=== PATIENT | female | born 1960 | race Caucasian/White ===

== ENCOUNTER 2017-08-09 06:29 | Day surgery (SDC) | payer BC ==
[~2017-08-09 06:29] MED LIST: Buffered Lidocaine 0.9% SYRIN* 5 ML/SYR SYRINGE INTRADERM ONE; Famotidine TAB* 20 MG PO ONE; Metoclopramide TAB* 10 MG PO ONE; Scopolamine 1.5 mg* PATCH TRANSDERM ONE; Sodium Citrate/Citric Acid* 15 ML UDC PO ONE
[2017-08-09] MEDS ORDERED: Metoclopramide TAB* 10 MG ONE (06:44)
[2017-08-09] MEDS ORDERED: Famotidine TAB* 20 MG ONE (06:44)
[2017-08-09] MEDS ORDERED: Sodium Citrate/Citric Acid* 15 ML UDC ONE (06:44)
[2017-08-09] MEDS ORDERED: Scopolamine 1.5 mg* PATCH ONE (06:44)
[2017-08-09] MEDS ORDERED: Buffered Lidocaine 0.9% SYRIN* 5 ML/SYR SYRINGE ONE (06:45)
[2017-08-09] MEDS ORDERED: Lidocaine 1% MPF wEPI 200,000* 30 ML SDV ONE (07:35)
[2017-08-09] MEDS ORDERED: fentaNYL* 50 MCG/ML 2 ML VIAL (100 MCG VIAL) ONE ×2 (07:44→10:00)
[2017-08-09] MEDS ORDERED: Dexamethasone IV* 4 MG/ML 1 ML (4 MG) ONE (07:45)
[2017-08-09] MEDS ORDERED: Ondansetron INJ* 2 MG/ML VIAL ONE (07:45)
[2017-08-09] MEDS ORDERED: Succinylcholine* 20 MG/ML 10 ML VIAL ONE (07:45)
[2017-08-09] MEDS ORDERED: Propofol* 10 MG/ML 20 ML BTL IV PUSH ONE (07:45)
[2017-08-09] MEDS ORDERED: HYDROcodone/ACETAMIN 5-325 MG* 1 TAB PO PRN (09:27)
[2017-08-09] MEDS ORDERED: Naloxone* 0.4 MG/ML 1 ML VIAL IV PRN (09:27)
[2017-08-09] MEDS ORDERED: EPHEDrine (Pressors)* 50 MG/ML VIAL ONE (09:30)
[2017-08-09] MEDS: fentaNYL* 50 MCG/ML 2 ML VIAL (100 MCG VIAL) IV PRN ×2 (10:02→10:49)
[2017-08-09] MEDS ORDERED: Acetaminoph/Cod 120/12 mg LIQ* 5 ML UDC ONE (10:08)
[2017-08-09] MEDS: DiMENhydriNATE IV* 50 MG/ML VIAL IV PUSH PRN ×2 (11:10→11:23)
[2017-08-09] MEDS ORDERED: DiMENhydriNATE IV* 50 MG/ML VIAL ONE (11:10)
[2017-08-09 13:13] VITALS: BP 112/58
--- NOTE | 2017-08-09 23:30 | OP ---
DATE OF OPERATION: 08/09/17 - [facility] DATE OF : 62 SURGEON: Ashutosh Rasheed MD S[employer]IOR [employer] SPECIALIST: Dr. Lomas. PRE-OP DIAGNOSIS: Left parathyroid adenoma. POST-OP DIAGNOSIS: Left parathyroid adenoma. OPERATIVE PROCEDURE: Left inferior parathyroidectomy under general endotracheal anesthesia. COMPLICATIONS: None. DISPOSITION: Good. SPECIMEN: Left inferior parathyroid. BLOOD LOSS: Less than 5 mL. DESCRIPTION OF PROCEDURE: The patient was taken to the operating room and placed in supine position on the operating table. General anesthesia induced and she was orotracheally intubated with the NIM endotracheal tube. The electrodes were then placed into her shoulder for ground and return if needed. Head was extended and the incision was demarcated inferior to her cricoid and injected with 1% lidocaine 1:200,000 epinephrine. She was prepped with Betadine and draped in a sterile fashion. Incision was made through the skin, platysma muscle, and flaps were raised. The strap muscles were elevated off of the left thyroid and then blunt dissection was used to systematically find the adenoma. The recurrent laryngeal nerve was found and the adenoma was found adjacent to this on the lateral aspect of the trachea inferior to the inferior portion of the thyroid gland. It was dissected out and sent down for frozen section, which confirms that it is parathyroid tissue at this point or adenoma. I did not do rapid PTH because her parathyroid hormone had been elevated at her preoperative testing. Wound was irrigated with saline. Hemostasis was ensured. The strap muscles were reapproximated with Vicryl. The skin was closed with 3 -0 deep dermal Vicryl and running subcuticular 4-0 Prolene, Mastisol and Steri- Strips. Patient tolerated this procedure well, no complications, transferred to the recovery room in stable condition. [id number]/[facility] #: [id number] [facility]USJennifer
[2017-08-12] MEDS ORDERED: Scopolamine PATCH Remove* 1 NOTE MISC PATCH OFF ONE (06:00)
== END 2017-08-09 13:00 | disposition home or self-care (01) ==
LOC: OR 06:29
PROVIDERS: ATTEND Otolaryngology
DX: D35.1 Benign neoplasm of parathyroid gland (principal); E21.0 Primary hyperparathyroidism; I10 Essential (primary) hypertension; L30.9 Dermatitis, unspecified; Z87.891 Personal history of nicotine dependence
CPT/HCPCS: 88305; 88331; A9270-GY; J0330; J1100; J1240; J2001; J2405; J2704; J3010

== ENCOUNTER → 2019-08-09 12:46 | Day surgery (SDC) | payer BC ==
[~2019-08-09 12:46] MED LIST changes: -Buffered Lidocaine 0.9% SYRIN* 5 ML/SYR SYRINGE INTRADERM ONE; +Buffered Lidocaine 1% SYRIN* 1 ML/SYRINGE INTRADERM ONE; +Bupivacaine 0.25% EPI 200,000* 30 ML SDV ONE; +Dexamethasone IV* 4 MG/ML 1 ML (4 MG) ONE; +DiMENhydriNATE IV* 50 MG/ML VIAL IV PUSH PRN; +DiMENhydriNATE IV* 50 MG/ML VIAL ONE; +EPINEPHRINE 1 MG/ML 1 ML VIAL ONE; -Famotidine TAB* 20 MG PO ONE; +Ketorolac INJ* 30 MG/ML 1 ML VIAL ONE; +Lactated Ringers 1000 ML Bag* 1,000 ML IV SCH; +Lidocaine 2% PF * 5 ML VIAL ONE; +Metoclopramide IV* 5 MG/ML 2 ML VIAL ONE; -Metoclopramide TAB* 10 MG PO ONE; +Midazolam* 1 MG/ML 2 ML VIAL (2 MG) ONE; +Naloxone* 0.4 MG/ML 1 ML VIAL IV PRN; +Ondansetron INJ* 2 MG/ML VIAL ONE; +Propofol* 10 MG/ML 20 ML BTL ONE; +ROPIVACAINE 5 MG/ML 30 ML BTL (0.5%) ONE; +Rocuronium* 10 MG/ML VIAL ONE; -Scopolamine 1.5 mg* PATCH TRANSDERM ONE; -Sodium Citrate/Citric Acid* 15 ML UDC PO ONE; +Succinylcholine* 20 MG/ML 10 ML VIAL ONE; +ceFAZolin 2 GM PREMIX in ORs 2 GM/50 ML BAG ONE; +fentaNYL* 50 MCG/ML 2 ML VIAL (100 MCG VIAL) ONE; +oxyCODONE TAB* 5 MG TAB ONE; +oxyCODONE TAB* 5 MG TAB PO PRN
[2019-08-09] MEDS: fentaNYL* 50 MCG/ML 2 ML VIAL (100 MCG VIAL) IV PRN ×2 (20:25→20:35)
[2019-08-09 21:03] VITALS: BP 129/71
--- NOTE | 2019-08-11 03:02 | OP ---
OPERATIVE REPORT: DATE OF OPERATION: 08/09/19 DATE OF : 62 SURGEON: Kb Escalante MD STATION ENGINEER MAIN LINE: ISAEL Rodriguez A physician assistant sales center manager was required for the length of the procedure for assistance with patient positi oning, instrumentation, and closure. ANESTHESIOLOGIST: Dr. Viv Loya. ANESTHESIA: General anesthesia, regional interscalene block anesthesia. PRE-OP DIAGNOSES: 1. Right shoulder supraspinatus rotator cuff tendon tear, full-thickness. 2. Right shoulder subacromial impingement and bursitis. 3. Right shoulder acromioclavicular joint osteoarthritis. 4. Possible right shoulder biceps tendinitis. POST-OP DIAGNOSES: 1. Right shoulder supraspinatus rotator cuff tendon tear, partial-thickness. 2. Right shoulder subacromial impingement and bursitis. 3. Right shoulder acromioclavicular joint osteoarthritis. OPERATIVE PROCEDURE: 1. Right shoulder arthroscopic rotator cuff tendon repair with Regeneten biologic patch. 2. Right shoulder arthroscopic subacromial decompression. 3. Right shoulder arthroscopic distal clavicle resection. ANTIBIOTICS: Ancef 2 g IV. IV FLUIDS: See anesthesia note. [id number] TIME: 50 minutes. SPECIMEN: None. IMPLANT: [employer] Regeneten biologic patch, size medium. COMPLICATIONS: None. ESTIMATED BLOOD LOSS: Minimal. INDICATIONS FOR PROCEDURE: The patient is a 59-year-old woman, right-hand dominant homemaker, who pr esented to my clinic on 07/31/19, complaining of pain in the right shoulder since June of 2019. There was no traumatic antecedent, but the patient was doing much needle work and painting in the mon prior to the development of shoulder pain. The patient had previously had right shoulder arthroscopic surgery in 2011, thought to initially had been done by Dr. Lai, but it seems to have instead been performed by Dr. Ck Coombs. Of note, th e patient took almost a year to recover from that first right shoulder surgery and she had much posto perative stiffness. The patient complained to me of pain with activities of daily living and with sleep. The patient had been treated by Dr. Giles to this point with physical therapy and Tylenol. I reviewed imaging preoperatively which demonstrated a small full-thickness tear of the supraspinatus tendon without significant retraction as well as subacromial bursitic fluid and tissue and some AC j oint osteoarthritis. There was only mild atrophy of the supraspinatus muscle belly on sagittal slice s. Increased fluid in the AC joint space as well as subchondral cyst on the acromial side of the anita nt. There was still some curve to the anterior aspect of the acromion despite prior surgery. I met with the patient and spoke to her at length about treatment options. These included continued nonoperative treatment with more physical therapy or a cortisone injection or alternatively surgery. At first, the patient was interested in physical therapy, but then decided to move forward instead w ith surgery. Discussed risks and potential complications of surgery. I also discussed possible treatments of the biceps. These would include either biceps release or biceps tenodesis. The patient and her decided on biceps tenodesis should the biceps needed to be treated. I spoke to the patient and her at length about her condition as well as the proposed surgical procedure both during her clinic visit in our office as well as by telephone as well as the day of t surgical procedure. DESCRIPTION OF PROCEDURE: In preoperative holding, the patient signed written consent. Operative ex tremity was marked in the preoperative holding. Anesthesiologist performed a regional interscalene ne rve block. The patient was brought back to the operating room and placed supine on operating room ta ble. Sedated and intubated. The patient was converted to a lateral decubitus position. Axillary roll placed. Abel bag hardened. Longitudinal traction with 10 pounds on that right shoulder with the appropriate amount of forward f lexion and abduction. I should state that prior to the patient being placed in the lateral decubitus position, I performed a mini time-out and examined the patient's shoulder under anesthesia with her supine. I obtained ful l range of motion to 180 degrees of forward flexion, 90 degrees of external, and 80 degrees of technical support intern al rotation. With the patient in the lateral decubitus position, the right shoulder was prepped and draped. Forma l surgical time-out was performed. I placed a spinal needle into the glenohumeral joint from posterior. I infused 30 cc of normal sali ne. I then established a posterior right shoulder glenohumeral joint portal using standard technique . I commenced my diagnostic arthroscopy component of the procedure. Articular cartilage of the glenohumeral joint was pristine with the exception of a small area of full -thickness cartilage defect, just medial to the supraspinatus tendon footprint. This appeared chroni c and again was very small. No loose bodies. Articular cartilage otherwise looked perfect. The lab rum looked excellent. No superior labral tear or significant biceps tendinopathy or tear present. I established an anterior glenohumeral joint portal under direct visualization. I probed the superio r labrum. No tear. I pulled the biceps tendon into the joint. While there was no significant tendin opathy distally, there was one line of redness, hyperemia. That was all, however, no fraying of the biceps tendon whatsoever, nor tear, so I decided that the biceps tendon did not require treatment. I looked at the rotator cuff. The undersurface looked fully pristine. No fraying whatsoever. No ex posed footprint on the humeral head whatsoever. Looking closely, there was one area that not directl y at the insertion, but just proximal looked a little bit different in one area, like it could be sli ghtly thin the tendon. I marked this area with a spinal needle from outside the shoulder, so I could determine its location once I was subacromial. With the spinal needle passage, the rotator cuff fel t like it had decreased stiffness consistent with a partial- thickness rotator cuff tendon tear. I removed instruments and fluid from glenohumeral joint and moved subacromial. I established anterio r and posterior subacromial portals using standard technique. I then established the lateral and pos terolateral portals under direct visualization. The patient did have some subacromial bursitis, which I removed with an arthroscopic shaver. I noted the location of the spinal needle. I examined the rotator cuff tendon in that location. There was some minimal amount of fraying on the bursal side of the supraspinatus, although there was no large h ole. As sometimes synovium can be mistaken for rotator cuff tendon, I made sure to shave along the s urface of the tendon. I also probed with a probe and switching stick. While the probe could go into the rotator cuff where the needle had been passed, it certainly could not go full thickness. It seem ed as though there was some partial- thickness interstitial tearing in the rotator cuff, but given t hat there was no bursal side or articular side to the tear, I thought that this was more appropriate for biologic patch than for superior anchor treatment. I proceeded forward with the subacromial decompression. I brought the arthroscopic melisa in from late ral and smoothed out the undersurface of the acromion. I took only a minimal additional amount more laterally. More anteromedial along the acromion, there was a spur still sticking down that I removed with the arthroscopic bur. I next created a superolateral skin incision and placed a cannula through it. I brought the Regeneten biologic patch in from lateral and I fixed it into position with PLLA oleksandr . I used plenty of oleksandr and the patching very well fixed, very stable with movement of the rosi l head. I next moved to the distal clavicle. I debrided bursitic tissue about it with an arthroscopic cauter y device. I then debrided 8 mm of the distal end of the clavicle with an arthroscopic melisa. I got r eally nice visualization of all 4 corners of the clavicle determining that the debridement of the dis florencia end of the clavicle was sufficient. Also, I lightly smoothed out the acromial side of that joint . I placed several final oleksandr in the Regeneten patch, confirmed its stability, and exited the subacr omial space. Skin incisions were closed with [id number] and 12 stitches using nylon 3-0 suture. Xeroform, 4x 4's, ABDs, foam tape. Sling and abduction pillow. The patient was awakened and transferred to the P ACU. DISPOSITION: The patient was discharged with wound care instructions. The patient will be given a s hort course of Keflex to avoid an infection and pain will be treated with Tylenol with Codeine No.3, the narcotic that she has taken without significant problems in the past per family. The patient saima l start physical therapy immediately according to the Regeneten biologic patch protocol. We will collette p in mind that the patient had significant slow, long recovery from prior arthroscopic decompression surgery in 2011 by another surgeon. We will also keep in mind that this patient may have a larger in terstitial tear as noted on preoperative MRI, although intraoperatively there was clearly no full-thi ckness tear nor any bursal nor undersurface aspect to the tear, but given the larger size of the inte rstitial tear from superior to inferior, we might move the patient along a little bit more slowly in terms of strengthening postoperatively. I will encourage her to be in the sling at least 2 to 3 week s postop. The patient will see me in clinic 10 to 14 days postoperatively. [id number]/[facility] #: [id number]
== END | disposition home or self-care (01) ==
LOC: OR 12:46
PROVIDERS: ATTEND Orthopaedic Surgery
DX: S46.011A Strain of muscle(s) and tendon(s) of the rotator cuff of right shoulder, initial encounter (principal); M75.41 Impingement syndrome of right shoulder; M75.51 Bursitis of right shoulder; M19.011 Primary osteoarthritis, right shoulder; X58.XXXA Exposure to other specified factors, initial encounter; Y92.9 Unspecified place or not applicable; G89.18 Other acute postprocedural pain; I10 Essential (primary) hypertension; D80.2 Selective deficiency of immunoglobulin A [IgA]
CPT/HCPCS: A9270-GY; C1713; J0330; J0690; J1100; J1240; J1885; J2250; J2405; J2704; J2765; J2795; J3010